=== PATIENT | female | born 1965 | race Caucasian/White ===

== ENCOUNTER → 2017-09-09 06:55 | Outpatient (CLI) | payer OTHER, SELFPAY ==
--- NOTE | 2017-09-09 07:07 | HPBI_ITS ---
MAMMOGRAPHY - BILATERAL SCREENING REASON FOR EXAM: Female, 52 years old. Routine annual screening examination. PERTINENT HISTORY: Remote left breast biopsy. TECHNIQUE: Digital bilateral breast lila (3D mammographic acquisition) in the CC and MLO projections. 2-D mediolateral oblique (MLO) and craniocaudad (CC) views of both breasts were obtained. CAD: Full Field Digital Mammography with Computer Added Detection was performed. COMPARISON: Comparison is made with prior study dated August 08, 2016 and December 08, 2015. FINDINGS: Breast Composition: The breasts are heterogeneously dense, which may obscure small masses. There are no dominant masses or suspicious calcifications. Once again, a tissue clip marker is seen in a small nodular density in the upper anterior aspect of the left breast No other significant abnormalities are identified. There has been no significant change since the prior study. HPBI/SCREENING MAMM (CAD), BILAT IMPRESSION: Stable bilateral screening mammogram. Yearly follow-up mammogram recommended. (A) ASSESSMENT CATEGORY: BIRADS Category 2: Benign. A letter regarding these results will be sent to the patient by the facility within 30 days. Approximately 10% of breast cancers are not detected by mammography. A normal mammogram should not delay biopsy of a clinically suspicious abnormality. [id number] Electronically Signed: Yossi Morris MD at 8:48 EDT Tel [phone], Service support ,
== END ==
PROVIDERS: Family Provider Family Medicine; PCP Family Medicine; Visit Provider Obstetrics & Gynecology
DX: Z12.31 Encounter for screening mammogram for malignant neoplasm of breast (principal)
CPT/HCPCS: 77062; 77067; G0279

== ENCOUNTER → 2018-08-24 09:24 | Outpatient (CLI) | payer OTHER, SELFPAY | PROVIDERS: Family Provider Family Medicine; PCP Family Medicine; Referring Provider Obstetrics & Gynecology; Visit Provider Obstetrics & Gynecology | DX: R05 Cough (principal); R68.83 Chills (without fever) | CPT/HCPCS: 87804 ==

== ENCOUNTER → 2018-09-24 | Outpatient (CLI) | payer OTHER, SELFPAY ==
--- NOTE | 2018-09-24 07:14 | BI_ITS ---
MAMMOGRAPHY - BILATERAL SCREENING REASON FOR EXAM: Female, 53 years old. Routine annual screening examination. PERTINENT HISTORY: Non-contributory. Prior left stereotactic breast biopsy. TECHNIQUE: Digital bilateral breast lila (3D mammographic acquisition) in the CC and MLO projections. 2-D mediolateral oblique (MLO) and craniocaudad (CC) views of both breasts were obtained. CAD: Full Field Digital Mammography with Computer Added Detection was performed. COMPARISON: Comparison is made with prior study dated September 09, 2017 and August 08, 2016. FINDINGS: Breast Composition: The breasts are heterogeneously dense, which may obscure small masses. There are no dominant masses or suspicious calcifications. A tissue clip marker is once again seen within a nodular density in the upper central portion of the left breast. The nodule is unchanged. No other significant abnormalities are identified. There has been no significant change since the prior study. BI/SCREENING MAMM (CAD), BILAT IMPRESSION: Stable bilateral screening mammogram. Yearly follow-up mammogram recommended. (A) ASSESSMENT CATEGORY: BIRADS Category 2: Benign. A letter regarding these results will be sent to the patient by the facility within 30 days. Approximately 10% of breast cancers are not detected by mammography. A normal mammogram should not delay biopsy of a clinically suspicious abnormality. [id number] Electronically Signed: Yossi Morris, at 9:22 EDT , Service support
== END | disposition home or self-care (01) ==
LOC: OPBI 07:13
PROVIDERS: Family Provider Family Medicine; PCP Family Medicine; Referring Provider Obstetrics & Gynecology; Visit Provider Obstetrics & Gynecology
DX: Z12.31 Encounter for screening mammogram for malignant neoplasm of breast (principal)
CPT/HCPCS: 77063; 77067

== ENCOUNTER → 2019-01-06 | Outpatient (CLI) | payer OTHER, SELFPAY ==
--- NOTE | 2019-01-06 13:52 | STRESSREP ---
Stress Test Report Treadmill EKG report: Resting EKG: Normal sinus rhythm with left bundle branch block. Treadmill EKG: The patient exercised according to a Joseph protocol for 7 minutes and 0 seconds achieving a maximum workload of 8.50 METS. Resting heart rate was initially 83 beats a minute and antonio to max of 146 beats a minute which represents 80% of the maximal age picked at heart rate. Resting blood pressure was 120/88, and antonio to maximum 162/78. Test was terminated due to leg discomfort. During exercise the patient's heart rate increased as expected. At approximately 3 minutes 23 seconds into exercise she developed [address] segment depression along the inferolateral leads. This persisted until approximately 1 minute into recovery. Rare PVCs noted. Conclusions: Abnormal, adequate, treadmill EKG. Positive for ischemia by EKG criteria. No anginal symptoms noted. Rare PVCs noted. Appropriate blood pressure response to exercise. Average exercise capacity for age. Decreased sensitivity due to baseline left bundle branch blocks make EKG interpretation problematic. No imaging study obtained. Recommend clinical correlation or alternative mode of stress testing to include imaging component in order to increase sensitivity given baseline LBBB. No complications.
== END | disposition home or self-care (01) ==
PROVIDERS: Family Provider Family Medicine; PCP Family Medicine; Referring Provider Family Medicine; Visit Provider Family Medicine
DX: R94.31 Abnormal electrocardiogram [ECG] [EKG] (principal)
CPT/HCPCS: 93017

== ENCOUNTER → 2019-01-15 15:41 | Outpatient (CLI) | payer OTHER, SELFPAY ==
[2019-01-14 14:03] VITALS: BMI 28.7
--- NOTE | 2019-01-15 15:42 | CT_ITS ---
STUDY: CTA CHEST REASON FOR EXAM: Female, 53 years old. Short of breath chest pain RADIATION DOSAGE (If Supplied By Facility): CTDIvol = ( 8.19 ) mGy, DLP = ( 368.61 ) mGycm TECHNIQUE: The examination was performed with the intravenous administration of 100 IV Isovue 370. Post-processing of the angiographic images was performed, with multiplanar reformation and 3D reconstruction. Individualized dose optimization techniques were used for this CT. COMPARISON: None. FINDINGS: Normal enhancement of the main pulmonary artery and right and left pulmonary arteries. Normal enhancement of the bilateral peripheral pulmonary arteries. There is no demonstrated pulmonary embolism. Normal thoracic aorta and visualized great vessels. There is no demonstrated aortic dissection. Heart is normal in size. Normal mediastinum. Normal hilar regions. Normal visualized trachea and bronchi. The lungs are well expanded. There is minor atelectasis within the dependent portion of the lungs. There is no focal infiltration or pulmonary nodule Normal pleura. Normal chest wall structures. Dorsal spine demonstrates advanced spondylosis. Small hiatal hernia is present. Normal visualized upper abdomen. CT/CTA Chest W/WO Contrast IMPRESSION: No acute abnormalities, without a demonstrated pulmonary embolism or arterial dissection. Other findings as above Electronically Signed: Perry Wilks MD at 16:18 EDT , Service support ,
== END ==
PROVIDERS: Family Provider Family Medicine; PCP Family Medicine; Referring Provider Internal Medicine Cardiovascular Disease; Visit Provider Internal Medicine Cardiovascular Disease
DX: E78.5 Hyperlipidemia, unspecified (principal); I44.7 Left bundle-branch block, unspecified; R07.9 Chest pain, unspecified; R06.02 Shortness of breath; R94.39 Abnormal result of other cardiovascular function study
CPT/HCPCS: 71275; Q9967

== ENCOUNTER → 2019-01-19 14:47 | Outpatient (CLI) | payer OTHER, SELFPAY ==
[2019-01-14 14:03] VITALS: BMI 28.7
--- NOTE | 2019-01-19 14:50 | ECHOD_ITS ---
Reason For Study: Chest Pain Procedure This was a 2D Doppler, Color Flow transthoracic echocardiogram. Exam performed in department. Left Ventricle Normal size and thickness. The estimated ejection fraction is 65 %. Stage 1 diastolic dysfunction. No regional wall motion abnormalities noted. Right Ventricle Normal size and thickness. Normal systolic function. Atria Normal left atrium. Normal right atrium. Normal atrial septum. Mitral Valve The mitral valve is structurally normal. No prolapse or stenosis seen. Tricuspid Valve Normal tricuspid valve. Trivial tricuspid valve insufficiency. Unable to estimate RV systolic pressure due to insufficient tricuspid regurgitant envelope. Aortic Valve Normal aortic valve. Trisinus/trileaflet aortic valve. Pulmonic Valve Normal pulmonic valve. Great Vessels Normal aortic root. Normal arch. Normal inferior vena cava. Inferior vena cava collapse with sniff. Pericardium/Pleural No pericardial effusion. MMode/2D Measurements & Calculations LVIDd: 4.5 cm IVSd: 1.2 cm LA dimension: 3.9 cm LVIDs: 3.0 cm LVPWd: 1.1 cm RVDd: 3.2 cm FS: 34.1 % LAV(MOD-bp): 54.4 ml LA A4 area: 19.8 cm2 RA A4 area: 12.7 cm2 LAV(MOD-bp) Indexed: 26.2 ml/m2 LAV(MOD-sp2): 53.4 ml LAV(MOD-sp4): 55.2 ml Time Measurements MV dec time: 0.22 sec Doppler Measurements & Calculations MV E max zeke: 74.9 cm/sec Lat Peak E' Zeke: 9.6 cm/sec Med Peak E' Zeke: 7.6 cm/sec MV A max zeke: 113.6 cm/sec E/E' lat: 7.8 E/E' med: 9.8 MV E/A: 0.66 MV V2 max: 124.2 cm/sec MV P1/2t max zeke: 100.2 cm/sec Ao V2 max: 139.8 cm/sec MV max P.2 mmHg MV P1/2t: 75.0 msec Ao max P.8 mmHg MV V2 mean: 73.3 cm/sec MV dec slope: 391.3 cm/sec2 Ao V2 mean: 92.7 cm/sec MV mean P.5 mmHg MVA(P1/2t): 2.9 cm2 Ao mean P.0 mmHg MV V2 VTI: 28.5 cm Ao V2 VTI: 26.7 cm LV V1 max: 102.9 cm/sec PA V2 max: 107.9 cm/sec LV V1 max P.2 mmHg LV V1 mean P.5 mmHg LV V1 mean: 73.7 cm/sec LV V1 VTI: 24.6 cm Interpretation Summary The estimated ejection fraction is 65 %. Stage 1 diastolic dysfunction. Trivial tricuspid valve insufficiency. Unable to estimate RV systolic pressure due to insufficient tricuspid regurgitant envelope. There is no comparison study available. Ordering Physician: Akash Lacy Referring Physician: Asim Montenegro Performed By: Willie Manjarrez RCS
== END ==
PROVIDERS: Family Provider Family Medicine; PCP Family Medicine; Referring Provider Internal Medicine Cardiovascular Disease; Visit Provider Internal Medicine Cardiovascular Disease
DX: I44.7 Left bundle-branch block, unspecified (principal); R06.02 Shortness of breath; R94.39 Abnormal result of other cardiovascular function study; R07.9 Chest pain, unspecified
CPT/HCPCS: 93306

== ENCOUNTER → 2019-01-29 | Outpatient (CLI) | payer OTHER, SELFPAY ==
[2019-01-14 14:03] VITALS: BMI 28.7
[2019-01-29 14:15] LABS: Hematocrit 42.6 % (37-47); Hemoglobin 14.4 g/dL (12.0-15.0); Mean Corp Hgb Conc 33.8 g/dL (32-36); Mean Corpuscular Hgb 32.4 pg (27.0-32.0); Mean Corpuscular Volume 95.9 fL (81-99); Mean Platelet Vol. 10.9 fl (6.2-12.0); Platelet Count 278 K/mm3 (150-450); RBC Distribution Width CV 12.4 % (11.6-14.6); RBC Distribution Width SD 43.8 fl (35.1-43.9); Red Blood Count 4.44 M/mm3 (4.2-5.4); White Blood Count 8.4 K/mm3 (4.4-11.0)
[2019-01-29 14:39] LABS: Anion Gap 5 (5-15); BUN 21 mg/dL (7-18); BUN/Creat Ratio 18.6 RATIO (10-20); Calcium,Total 9.1 mg/dL (8.5-10.1); Chloride 106 mmol/L (98-107); Creatinine, Serum 1.13 mg/dL (0.55-1.02); EST Glomerular Filtration Rate 53 mL/min (>60); Est Glom Filt Rate - Afr Amer 64 mL/min (>60); Glucose 93 mg/dL (74-106); Potassium 3.9 mmol/L (3.5-5.1); Sodium Level 142 mmol/L (136-145)
== END | disposition home or self-care (01) ==
LOC: LAB 13:33
PROVIDERS: Family Provider Family Medicine; PCP Family Medicine; Referring Provider Internal Medicine Cardiovascular Disease; Visit Provider Internal Medicine Cardiovascular Disease
DX: I44.7 Left bundle-branch block, unspecified (principal)
CPT/HCPCS: 36415; 80048; 85027

== ENCOUNTER 2019-02-02 06:56 | Day surgery (SDC) | payer OTHER, SELFPAY ==
--- NOTE | 2019-01-14 03:04 | HP_ITS ---
HPI HPI History of Present Illness Surgical H&P: Yes Details: Mrs. Ko is a very pleasant 53-year-old female with borderline diabetes, recently diagnosed hypertension, hypercholesterolemia, positive family history of coronary disease in her father at age 64 who had stents, non-smoker, who was referred to us for chest pain and palpitations. Patient underwent a treadmill EKG reviewed by myself on 01/06/2019. This was felt to be abnormal for ST segment depression, superimposed upon left bundle branch block. At that time she went 8.5 METS. Appropriate blood pressure response to exercise. Patient is now here for further evaluation. On further history, the patient has had progressively worsening dyspnea on exertion over the last several months. She cannot recall any long car rides that precipitated this. She does have a daughter has factor V Leiden deficiency and has had clots, and several family members who have had clots but have tested negative for hypercoagulable state. The patient is noted significant dyspnea on exertion while at [employer] this past November with extreme tiredness, dyspnea on exertion after walking 5 flights of stairs, and 5 out of 10 substernal chest heaviness. She denied any associated nausea, vomiting, diaphoresis or radiation of her chest pressure. She notes that on her treadmill test recently she had the beginnings of chest pressure at peak exercise. She is to walk 3 miles several times per week, but is unable to do so recently. She has never been evaluated for pulmonary embolism and never had a catheterization. In addition, the patient has had several miscarriages and is status post hysterectomy for precancerous cells. She has been on estradiol ever since 2013 for hot flashes. In our office today blood pressure is 148/96, and pulse is 76 and regular. Her physical exam demonstrates clear lungs bilaterally, regular rate and rhythm, normal S1/S2, no S3 or S4, no murmurs noted. No edema. EKG is pending, but previous EKG noted normal sinus rhythm with left bundle branch block. Patient had lipids recently, but we do not have those labs available today. 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: No Accompanied by: Is patient in pain?: No Allergies No Known Allergies Allergy (Verified 01/14/19 14:06) Medications acetaminophen 325 mg tablet 325 mg PO Q6H PRN 01/08/19 [History Confirmed 01/14/19] wljpfbufdc-frhfiqafdwhbp-kklwowxf 50 mg-300 mg-40 mg capsule 1 cap PO TID PRN 01/08/19 [History Confirmed 01/14/19] estradiol 0.5 mg tablet 0.5 mg PO DAILY 01/08/19 [History Confirmed 01/14/19] lorazepam 1 mg tablet 1 mg PO Q6H PRN tab 01/14/19 [History Confirmed 01/14/19] olmesartan 20 mg-hydrochlorothiazide 12.5 mg tablet 1 tab PO DAILY #30 tab 01/14/19 [Rx Confirmed 01/14/19] PFSH Medical History (Updated 01/14/19 @ 14:15 by Elysia Guy) Shortness of breath on exertion (Acute) LBBB (left bundle branch block) (Acute) Hyperlipidemia (Chronic) Abnormal stress test (Acute) Surgical History (Updated 01/14/19 @ 14:09 by Elysia Guy) History of D&C (Resolved) History of bladder suspension procedure (Resolved) History of breast biopsy (Resolved) History of section (Resolved) History of cholecystectomy (Resolved) History of hysterectomy (Resolved) History of tubal ligation (Resolved) Family History (Updated 01/14/19 @ 14:11 by Elysia Guy) Father Heart disease COPD (chronic obstructive pulmonary disease) Grandmother Cancer lung Hypertension Uncle Cancer lung Brother Diabetes Daughter Factor 5 Leiden mutation, heterozygous Social History (Updated 01/14/19 @ 15:05 by Akash Lacy MD) Smoking Status: Never smoker alcohol intake: current substance use type: does not use caffeine: Yes Type: tea Number of servings: 2 ROS Const Const: Positive for fatigue; negative for weakness, headache(s), frequent falls, difficulty sleeping or excessive sweating Eyes Eyes: Negative for loss of peripheral vision, transient loss of vision, blurry vision, double vision or tunnel vision ENT ENT: Negative for headache(s), dizziness, Nosebleed/epistaxis or balance problems Cardio Chest Pain: Yes Frequency: weekly (couple of times per week) Character: other (heaviness) Onset: other (randomly) Location: mid sternal Duration: hours Palpitations: Yes (Daily) feels like its: other (fluttering(like I've been scared)) Edema: None Muscle aches with walking: None Resp Respiratory: Positive for SOB with activity; negative for SOB at rest, SOB orthopnea\SOB lying down, Cough or paroxysmal nocturnal dyspnea GI GI: Negative nausea, vomiting, heartburn or black,tarry stools : Negative for hematuria Musc Musc: Negative for muscle aches/ myalgia, muscle weakness, joint pain or balance problems Skin Skin: Negative non-healing lesions, rash or unusual bruising Neuro Neuro: Positive for lightheadedness (occurs with shortness of breath, chest heaviness); negative for dizziness, near syncope, syncope, frequent falls, headache(s), weakness, blurry vision, double vision or lack of coordination Gwyn Hematologic/Lymphatic: Negative for easy bleeding or easy bruising Endo Endo: Positive for fatigue; negative for excessive sweating or increased thirst/drinking Psych Psych: Negative for anxiety or depression Allergy Allergy/Immunology: Negative for hives, Negative for rash Cardiology Exam Const Appearance: cooperative, healthy appearing and no acute distress Nutritional Appearance: well nourished Orientation: alert, oriented x3 and oriented to person Head Head: normal to inspection, normocephalic and atraumatic Nose: external nose normal Face and Sinus: face symmetric Mouth: oral mucosae normal Eyes General: appearance normal, both eyes and all related structures Eyelids: eyelids normal Conjunctivae: conjunctivae normal Pupils: PERRL and normal by confrontation EOM: EOM intact bilaterally Neck Neck: normal visual inspection and full ROM Carotids: normal carotid upstroke Chest Chest inspection: normal inspection of the chest Auscultation: Bilateral: Clear to Auscultation Cardio Palpation: normal PMI Rate: regular rate Rhythm: regular rhythm Heart sounds: S1 normal and S2 normal GI GI: normal to inspection, no hepatosplenomegaly and bowel sounds present Neuro General: alert, awake, oriented x3, CN's II-XI intact bilaterally and moves all extremities Skin Skin: no rashes or lesions noted Extremities Pulses: Normal: Right Femoral Pulse, Left Femoral Pulse, Right Dorsalis Pedis Pulse, Left Dorsalis Pedis Pulse, Right Posterior Tibial Pulse, Left Posterior Tibial Pulse, Right Radial Pulse, Left Radial Pulse Lower Extremity Edema: None: Bilateral Psych Psychological: normal affect Assessment & Plan 1. Abnormal stress test R94.39 Plan 1. Abnormal stress test: The patient has had progressively worsening dyspnea on exertion superimposed on baseline left bundle branch block, abnormal treadmill/EKG, superimposed upon a positive family history of coronary disease in her father who had stents at age 64. Given the patient's symptoms, risk factors, abnormal stress test, I have recommended that she undergo a diagnostic coronary angiogram after we have performed a CT scan of her chest to evaluate for possible pulmonary embolism. If her CT scan of her chest is negative, would recommend proceeding with diagnostic left heart catheterization. The risks/benefits of the procedure were thoroughly explained to the patient, with specific attention to lack of on-site surgical back-up, and informed consent was obtained. Recommend starting the patient on baby aspirin, Plavix 75 mg a day, and Hyzaar 50/12.5 mg p.o. daily for her hypertension. Orders Orders: Lipid Profile Today Liver Profile Today CTA Chest W/WO Contrast Today Echo Complete Today 2. Shortness of breath on exertion R06.02 Plan 2. Shortness of breath: Recommend the patient undergo a hypercoagulable work-up including factor V Leiden, lupus anticoagulant, anti-thrombin 3, protein C and protein S. In addition she will undergo a CT scan of her chest to evaluate whether she has had a previous pulmonary embolism given her history of miscarriages, daughter who has factor V Leiden deficiency. In addition I recommend she undergo a 2D echo with Doppler to evaluate for possible pulmonary hypertension. Orders Orders: Lipid Profile Today Liver Profile Today CTA Chest W/WO Contrast Today Echo Complete Today Antithrombin 3 Function 1 Week Fact V Leiden Mutation 1 Week Lupus Anticoagulant Comp 1 Week Protein C, Functional 1 Week Protein S, Functional 1 Week Homocysteine 1 Week 3. Hyperlipidemia E78.5 Plan 3. Hyperlipidemia: Patient recently underwent lipid profile by her PCP. We await those results. Should the patient have any coronary disease would recommend aggressive LDL reduction given her family history. 4. Return office in 6-months This note was generated using a voice recognition system and there may be incorrect words, spelling or punctuation that were not noted when reviewing the office note prior to saving. Orders Orders: Lipid Profile Today Liver Profile Today CTA Chest W/WO Contrast Today Plan Detail Other Orders Orders: Lipid Profile Today E78.00, I44.7 Liver Profile Today E78.00, I44.7 CTA Chest W/WO Contrast Today I44.7, R07.9 Echo Complete Today I44.7, R07.9 Other Medications New: olmesartan-hydrochlorothiazide 20-12.5 mg 1 tab PO DAILY 30 tabs 11RF Follow Up +6M (Regino) Coding Level of Care Code Off vis,new,level 4 Diagnoses Abnormal stress test R94.39 Shortness of breath on exertion R06.02 Hyperlipidemia E78.5 Coding Level of Care Code Off vis,new,level 4 Diagnoses Abnormal stress test R94.39 Shortness of breath on exertion R06.02 Hyperlipidemia E78.5 Supplemental Info Supplemental Information Diagnostics Stress Test 01/06/19 Chest X-Ray 06/17/16 01/14/19 3402 <Electronically signed by Akash Lacy MD> Date _ Akash Lacy MD
[2019-01-14 14:03] VITALS: BMI 28.7
[2019-02-02 07:12] VITALS: BMI 28.2
--- NOTE | 2019-02-02 08:25 | PCM.HP.BLA ---
Problem List (1) Abnormal stress test Status: Acute (2) LBBB (left bundle branch block) Status: Acute (3) Shortness of breath on exertion Status: Acute (4) Hyperlipidemia Status: Chronic History and Physical Date of Admission: 02/02/19 [facility] Medical Records Department [address] [place] [address] History and Physical 01/14/19 0304 MR#: [id number] Acct: [id number] Name: ODALYS KO Rep #: [id number] : 1965 53 From: Akash Lacy MD PCP: Asim Montenegro MD Status: [facility] – [place] [facility] HPI HPI History of Present Illness Surgical H&P: Yes Details: Mrs. Ko is a very pleasant 53-year-old female with borderline diabetes, recently diagnosed hypertension, hypercholesterolemia, positive family history of coronary disease in her father at age 64 who had stents, non-smoker, who was referred to us for chest pain and palpitations. Patient underwent a treadmill EKG reviewed by myself on 01/06/2019. This was felt to be abnormal for ST segment depression, superimposed upon left bundle branch block. At that time she went 8.5 METS. Appropriate blood pressure response to exercise. Patient is now here for further evaluation. On further history, the patient has had progressively worsening dyspnea on exertion over the last several months. She cannot recall any long car rides that precipitated this. She does have a daughter has factor V Leiden deficiency and has had clots, and several family members who have had clots but have tested negative for hypercoagulable state. The patient is noted significant dyspnea on exertion while at [employer] this past November with extreme tiredness, dyspnea on exertion after walking 5 flights of stairs, and 5 out of 10 substernal chest heaviness. She denied any associated nausea, vomiting, diaphoresis or radiation of her chest pressure. She notes that on her treadmill test recently she had the beginnings of chest pressure at peak exercise. She is to walk 3 miles several times per week, but is unable to do so recently. She has never been evaluated for pulmonary embolism and never had a catheterization. In addition, the patient has had several miscarriages and is status post hysterectomy for precancerous cells. She has been on estradiol ever since 2013 for hot flashes. In our office today blood pressure is 148/96, and pulse is 76 and regular. Her physical exam demonstrates clear lungs bilaterally, regular rate and rhythm, normal S1/S2, no S3 or S4, no murmurs noted. No edema. EKG is pending, but previous EKG noted normal sinus rhythm with left bundle branch block. Patient had lipids recently, but we do not have those labs available today. Intake Vital Signs 01/14/19 Height 5 ft 10 in 01/14/19 Weight: 200 lb 01/14/19 Body Mass Index (BMI) 28.7 01/14/19 Blood Pressure 148/96 H 01/14/19 Blood Pressure Location Lt brachial 01/14/19 Respiratory Rate 18 01/14/19 Pulse Rate 76 01/14/19 Pulse Source Auscultation 01/14/19 Body Mass Index (BMI) 29.4 Intake Visit Reasons: ABN STRESS (Sravanthi MONTENEGRO) Digital Sales Executive Required: No Accompanied by: Is patient in pain?: No Allergies No Known Allergies Allergy (Verified 01/14/19 14:06) Medications acetaminophen 325 mg tablet 325 mg PO Q6H PRN 01/08/19 [History Confirmed 01/14/19] cgroryvpuo-fuowweknfwtwx-yimzmhhf 50 mg-300 mg-40 mg capsule 1 cap PO TID PRN 01/08/19 [History Confirmed 01/14/19] estradiol 0.5 mg tablet 0.5 mg PO DAILY 01/08/19 [History Confirmed 01/14/19] lorazepam 1 mg tablet 1 mg PO Q6H PRN tab 01/14/19 [History Confirmed 01/14/19] olmesartan 20 mg-hydrochlorothiazide 12.5 mg tablet 1 tab PO DAILY #30 tab 01/14/19 [Rx Confirmed 01/14/19] [facility] Medical History (Updated 01/14/19 @ 14:15 by Elysia Guy) Shortness of breath on exertion (Acute) LBBB (left bundle branch block) (Acute) Hyperlipidemia (Chronic) Abnormal stress test (Acute) Surgical History (Updated 01/14/19 @ 14:09 by Elyisa Guy) History of D&C (Resolved) History of bladder suspension procedure (Resolved) History of breast biopsy (Resolved) History of section (Resolved) History of cholecystectomy (Resolved) History of hysterectomy (Resolved) History of tubal ligation (Resolved) Family History (Updated 01/14/19 @ 14:11 by Elysia Guy) Father Heart disease COPD (chronic obstructive pulmonary disease) Grandmother Cancer lung Hypertension Uncle Cancer lung Brother Diabetes Daughter Factor 5 Leiden mutation, heterozygous Social History (Updated 01/14/19 @ 15:05 by Akash Lacy MD) Smoking Status: Never smoker alcohol intake: current substance use type: does not use caffeine: Yes Type: tea Number of servings: 2 ROS Const Const: Positive for fatigue; negative for weakness, headache(s), frequent falls, difficulty sleeping or excessive sweating Eyes Eyes: Negative for loss of peripheral vision, transient loss of vision, blurry vision, double vision or tunnel vision ENT ENT: Negative for headache(s), dizziness, Nosebleed/epistaxis or balance problems Cardio Chest Pain: Yes Frequency: weekly (couple of times per week) Character: other (heaviness) Onset: other (randomly) Location: mid sternal Duration: hours Palpitations: Yes (Daily) feels like its: other (fluttering(like I've been scared)) Edema: None Muscle aches with walking: None Resp Respiratory: Positive for SOB with activity; negative for SOB at rest, SOB orthopnea\SOB lying down, Cough or paroxysmal nocturnal dyspnea GI GI: Negative nausea, vomiting, heartburn or black,tarry stools : Negative for hematuria Musc Musc: Negative for muscle aches/ myalgia, muscle weakness, joint pain or balance problems Skin Skin: Negative non-healing lesions, rash or unusual bruising Neuro Neuro: Positive for lightheadedness (occurs with shortness of breath, chest heaviness); negative for dizziness, near syncope, syncope, frequent falls, headache(s), weakness, blurry vision, double vision or lack of coordination Gwyn Hematologic/Lymphatic: Negative for easy bleeding or easy bruising Endo Endo: Positive for fatigue; negative for excessive sweating or increased thirst/drinking Psych Psych: Negative for anxiety or depression Allergy Allergy/Immunology: Negative for hives, Negative for rash Cardiology Exam Const Appearance: cooperative, healthy appearing and no acute distress Nutritional Appearance: well nourished Orientation: alert, oriented x3 and oriented to person Head Head: normal to inspection, normocephalic and atraumatic Nose: external nose normal Face and Sinus: face symmetric Mouth: oral mucosae normal Eyes General: appearance normal, both eyes and all related structures Eyelids: eyelids normal Conjunctivae: conjunctivae normal Pupils: PERRL and normal by confrontation EOM: EOM intact bilaterally Neck Neck: normal visual inspection and full ROM Carotids: normal carotid upstroke Chest Chest inspection: normal inspection of the chest Auscultation: Bilateral: Clear to Auscultation Cardio Palpation: normal PMI Rate: regular rate Rhythm: regular rhythm Heart sounds: S1 normal and S2 normal GI GI: normal to inspection, no hepatosplenomegaly and bowel sounds present Neuro General: alert, awake, oriented x3, CN's II-XI intact bilaterally and moves all extremities Skin Skin: no rashes or lesions noted Extremities Pulses: Normal: Right Femoral Pulse, Left Femoral Pulse, Right Dorsalis Pedis Pulse, Left Dorsalis Pedis Pulse, Right Posterior Tibial Pulse, Left Posterior Tibial Pulse, Right Radial Pulse, Left Radial Pulse Lower Extremity Edema: None: Bilateral Psych Psychological: normal affect Assessment & Plan 1. Abnormal stress test R94.39 Plan 1. Abnormal stress test: The patient has had progressively worsening dyspnea on exertion superimposed on baseline left bundle branch block, abnormal treadmill/EKG, superimposed upon a positive family history of coronary disease in her father who had stents at age 64. Given the patient's symptoms, risk factors, abnormal stress test, I have recommended that she undergo a diagnostic coronary angiogram after we have performed a CT scan of her chest to evaluate for possible pulmonary embolism. If her CT scan of her chest is negative, would recommend proceeding with diagnostic left heart catheterization. The risks/benefits of the procedure were thoroughly explained to the patient, with specific attention to lack of on-site surgical back-up, and informed consent was obtained. Recommend starting the patient on baby aspirin, Plavix 75 mg a day, and Hyzaar 50/12.5 mg p.o. daily for her hypertension. Orders Orders: Lipid Profile Today Liver Profile Today CTA Chest W/WO Contrast Today Echo Complete Today 2. Shortness of breath on exertion R06.02 Plan 2. Shortness of breath: Recommend the patient undergo a hypercoagulable work-up including factor V Leiden, lupus anticoagulant, anti-thrombin 3, protein C and protein S. In addition she will undergo a CT scan of her chest to evaluate whether she has had a previous pulmonary embolism given her history of miscarriages, daughter who has factor V Leiden deficiency. In addition I recommend she undergo a 2D echo with Doppler to evaluate for possible pulmonary hypertension. Orders Orders: Lipid Profile Today Liver Profile Today CTA Chest W/WO Contrast Today Echo Complete Today Antithrombin 3 Function 1 Week Fact V Leiden Mutation 1 Week Lupus Anticoagulant Comp 1 Week Protein C, Functional 1 Week Protein S, Functional 1 Week Homocysteine 1 Week 3. Hyperlipidemia E78.5 Plan 3. Hyperlipidemia: Patient recently underwent lipid profile by her PCP. We await those results. Should the patient have any coronary disease would recommend aggressive LDL reduction given her family history. 4. Return office in 6-months This note was generated using a voice recognition system and there may be incorrect words, spelling or punctuation that were not noted when reviewing the office note prior to saving. Orders Orders: Lipid Profile Today Liver Profile Today CTA Chest W/WO Contrast Today Plan Detail Other Orders Orders: Lipid Profile Today E78.00, I44.7 Liver Profile Today E78.00, I44.7 CTA Chest W/WO Contrast Today I44.7, R07.9 Echo Complete Today I44.7, R07.9 Other Medications New: olmesartan-hydrochlorothiazide 20-12.5 mg 1 tab PO DAILY 30 tabs 11RF Follow Up +6M (Regino) Coding Level of Care Code Off vis,new,level 4 Diagnoses Abnormal stress test R94.39 Shortness of breath on exertion R06.02 Hyperlipidemia E78.5 Coding Level of Care Code Off vis,new,level 4 Diagnoses Abnormal stress test R94.39 Shortness of breath on exertion R06.02 Hyperlipidemia E78.5 Supplemental Info Supplemental Information Diagnostics Stress Test 01/06/19 Chest X-Ray 06/17/16 01/14/19 1505 <Electronically signed by Akash Lacy MD> Date Akash Lacy MD 01/28/19 1327 <Electronically signed by Akash Lacy MD> Date: Time: Akash Lacy MD CC: Akash Lacy MD; Asim Montenegro MD ~ Date Dictated: 01/14/19 0304 Date Transcribed: 01/27/19 7736 Java Lead Developer: Signed Addendum: Patient seen and examined agree with above. No changes in history of physical since her last visit. Patient will proceed with left heart catheterization to evaluate abnormal stress test, chest pain, dyspnea on exertion, positive family history of premature coronary artery disease, and changes symptoms. Left heart catheterization to follow.
--- NOTE | 2019-02-02 09:00 | CL.D_ITS ---
Patient Name: ODALYS COBURN Study Date: 02/02/2019 Performing: Akash Lacy MD Ht: 70 inches 177.8 cm : 1965 Wt: 193.98 lbs 87.99 kg Age: 53 Gender: female BSA: 2.06 PROCEDURE(S) PERFORMED MO57-LIO/COR/LV CLINICAL PROFILE AND INDICATIONS Indications: New Onset Angina <= 2 months, Suspected CAD Heart Failure: None Stress/Imaging Standard Exercise Stress Test: Yes Result: Positive Low Risk Angina Classification Anginal Classification w/in 2 Weeks: CCS II CAD Presentations: Unstable angina. Other: Dyspne on exertion Comorbidities/Risk Factors: Hypertension Dyslipidemia Diabetes Mellitus: Diabetes Therapy: Diet CONCLUSIONS Normal LV size, wall motion,and systolic function Normal Left Ventricular systolic function LVEF: by LV gram 65 % Normal Left Ventricular End Diastolic Pressure Non obstructive coronary arteries RECOMMENDATIONS Management as per referring Satellite Communications Engineer D/c plavix, start crestor 10mg po qhs and repeat FLP in 6 weeks. Manual sheath removal. DESCRIPTION OF PROCEDURE The patient arrived to the procedure lab. The risks and benefits of the procedure as well as a full d escription of our services here and current unavailability of surgical backup were fully explained to the patient and/or their significant other prior to the catheterization. The Timeout was completed, verifying the correct patient and procedure. The patient's procedural site was prepped and draped in the usual fashion. Local anesthetic was given subcutaneously to right groin region with Lidocaine 2%. Using a modified Seldinger technique, arterial access was obtained via the right femoral artery, a 4 Fr sheath was inserted Left Coronary Artery selective angiography was performed in multiple views us ing a 4 Fr. JL5 catheter. Right Coronary Artery selective angiography was then performed in multiple views using a 4 Fr. 3DRC catheter. Left Ventriculography was performed in GREEN projection using a 4 Fr . Pigtail catheter. LV to AO pullback pressures were then recorded.The arterial sheath was pulled and manual compression applied until hemostasis is achieved. CORONARY ANGIOGRAPHY DOMINANCE: Right Dominant LEFT HEART ASSESSMENT Left Ventricular Ejection Fraction: by LV Gram 65 % Normal LV wall motion Normal Left Ventricular systolic function LVEDP: 8 mmHg LEFT MAIN: Angiographically normal LEFT ANTERIOR DESCENDING ARTERY: Angiographically normal CIRCUMFLEX ARTERY: Angiographically normal OM 1: Proximal - Angiographically normal RIGHT CORONARY ARTERY: MID RCA: Non-obstructive COMPLICATIONS No Complications PROCEDURE MEDICATIONS Versed 1 mg IV Oxygen: 2 L/min via nasal cannula SUMMARY OF HEMODYNAMIC DATA Time AIR REST ECG 07:20:39 AO 132/70 (92) SA 08:41:32 LV 143/-21, 6 08:47:43 LV 133/-21, 8 08:47:50 LVp 134/-26, 2 08:47:58 AOp 149/70 (101) 08:48:03 Signed By Akash Lacy MD On 02/02/2019 09:00:19 Akash Lacy MD
== END 2019-02-02 13:17 | disposition home or self-care (01) ==
LOC: CLSP 06:57
PROVIDERS: Family Provider Family Medicine; PCP Family Medicine; Referring Provider Internal Medicine Cardiovascular Disease; Visit Provider Internal Medicine Cardiovascular Disease
DX: I20.9 Angina pectoris, unspecified (principal); R94.39 Abnormal result of other cardiovascular function study; I44.7 Left bundle-branch block, unspecified; E78.5 Hyperlipidemia, unspecified; R06.02 Shortness of breath; R73.09 Other abnormal glucose; Z79.899 Other long term (current) drug therapy
CPT/HCPCS: 93458; 99152; 99153; J7040; Q9967; C1769; C1894

== ENCOUNTER → 2019-03-16 | Outpatient (CLI) | payer OTHER, SELFPAY ==
[2019-03-16 10:47] LABS: AST(SGOT) 15 U/L (15-37); Alanine Aminotransfer ALT/SGPT 23 U/L (13-56); Albumin, Serum 4.1 g/dL (3.2-5.0); Alkaline Phosphatase 84 U/L (45-117); Bilirubin, Direct 0.09 mg/dL (0.00-0.30); Cholesterol 173 mg/dL (200); Globulin 3.4 g/dL (2.2-4.2); High Density Lipoprotein 78 mg/dL; Protein, Total 7.5 g/dL (6.4-8.2); Triglycerides 132 mg/dL; Very Low Density Lipoprotein 26 mg/dL (5-40)
== END | disposition home or self-care (01) ==
LOC: WOBLAB 08:39
PROVIDERS: Family Provider Family Medicine; PCP Family Medicine; Visit Provider Internal Medicine Cardiovascular Disease
DX: E78.5 Hyperlipidemia, unspecified (principal)
CPT/HCPCS: 36415; 80061; 80076

== ENCOUNTER → 2019-05-04 08:46 | Outpatient (CLI) | payer OTHER, SELFPAY ==
[2019-05-04 11:50] LABS: ALB/GLOB Ratio 1.2 RATIO (0.9-2.4); AST(SGOT) 16 U/L (15-37); Alanine Aminotransfer ALT/SGPT 25 U/L (13-56); Albumin, Serum 4.1 g/dL (3.2-5.0); Alkaline Phosphatase 72 U/L (45-117); Anion Gap 4 (5-15); BUN 17 mg/dL (7-18); BUN/Creat Ratio 16.8 RATIO (10-20); Calcium,Total 8.8 mg/dL (8.5-10.1); Chloride 110 mmol/L (98-107); Creatinine, Serum 1.01 mg/dL (0.55-1.02); EST Glomerular Filtration Rate 60 mL/min (>60); Est Glom Filt Rate - Afr Amer 73 mL/min (>60); Globulin 3.3 g/dL (2.2-4.2); Glucose 102 mg/dL (74-106); Potassium 3.9 mmol/L (3.5-5.1); Protein, Total 7.4 g/dL (6.4-8.2); Sodium Level 142 mmol/L (136-145)
[2019-05-04 11:55] LABS: Hemoglobin A1c 5.5 % (4.2-6.3)
== END ==
PROVIDERS: Family Provider Family Medicine; PCP Family Medicine; Visit Provider Family Medicine
DX: E88.81 Metabolic syndrome and other insulin resistance (principal)
CPT/HCPCS: 80053; 83036

== ENCOUNTER → 2019-11-18 | Outpatient (CLI) | payer OTHER, SELFPAY ==
--- NOTE | 2019-11-18 07:05 | BI_ITS ---
MAMMOGRAPHY - BILATERAL SCREENING REASON FOR EXAM: Female, 54 years old. Routine annual screening examination. PERTINENT HISTORY: Non-contributory. TECHNIQUE: Digital bilateral breast francia (3D mammographic acquisition) in the CC and MLO projections. 2-D mediolateral oblique (MLO) and craniocaudad (CC) views of both breasts were obtained. CAD: Full Field Digital Mammography with Computer Added Detection was performed. COMPARISON: Comparison is made with prior examination dated September 24, 2018 and September 09, 2017. FINDINGS: Breast Composition: The breasts are heterogeneously dense, which may obscure small masses. There are no dominant masses or suspicious calcifications. Once again, a tissue clip marker is seen within a 7.9 mm nodule in the upper central portion of the left breast. The nodular density has decreased in size as compared to prior study. No other significant abnormalities are identified. There has been no significant change since the prior study. BI/SCREEN MAMM (CAD) W/FRANCIA BILAT IMPRESSION: Stable bilateral screening mammogram. Yearly follow-up mammogram recommended. (A) ASSESSMENT CATEGORY: BIRADS Category 2: Benign. A letter regarding these results will be sent to the patient by the facility within 30 days. Approximately 10% of breast cancers are not detected by mammography. A normal mammogram should not delay biopsy of a clinically suspicious abnormality. [id number] Electronically Signed: Yossi Morris, at 8:09 EDT , Service support ,
== END | disposition home or self-care (01) ==
LOC: OPBI 07:02
PROVIDERS: PCP Family Medicine; Referring Provider Obstetrics & Gynecology; Visit Provider Obstetrics & Gynecology
DX: Z12.31 Encounter for screening mammogram for malignant neoplasm of breast (principal)
CPT/HCPCS: 77063; 77067

== ENCOUNTER → 2020-06-20 | Outpatient (CLI) | payer OTHER, SELFPAY | END | disposition home or self-care (01) | LOC: LABSPEC 14:19 | PROVIDERS: PCP Family Medicine; Referring Provider Family Medicine; Visit Provider Family Medicine | DX: U07.1 COVID-19 (principal) | CPT/HCPCS: 87635; U0005; U0003 ==

== ENCOUNTER 2020-06-26 15:34 | Emergency (ER) | payer OTHER, SELFPAY ==
[2020-06-26] VITALS (8 sets, daily range): BP systolic 114–120; BP diastolic 76–80; PULSE 73–87; RESP 17–18; TEMP 36.1–36.4; O2SAT 88–98; BMI 27.2
--- NOTE | 2020-06-26 15:50 | ED.VIS.GEN ---
History of Present Illness Chief Complaint: Shortness of Breath Detail of Chief Complaint: COVID-19 Informant: Patient Onset: Days - 9 days Current Severity: Mild Maximum Severity: Mild Narrative: Patient does with increasing shortness of breath with diagnosis of COVID-19. She states she developed symptoms of congestion, shortness of breath, body aches, fever on the . She had a positive test on the . Patient states she continues to have temperatures up to 102. She does report shortness of breath, worse with any exertion. While sitting at rest her oxygen level at home has been between 80 and 90% the last 2 days. She denies any history of underlying lung disease. - Past Medical History (1) Hyperlipidemia Status: Chronic Past Medical History - Allergies and Home Meds Allergies/Adverse Reactions: Allergies No Known Allergies Allergy (Verified 06/26/20 15:36) Primary Care Physician: Asim Montenegro MD [Primary Care Provider] - Surgical History: cholecystectomy, hysterectomy Smoking Status: Never smoker Review of Systems General: Reports: Fever Eyes: Denies: Visual changes - bilaterally ENT: Denies: Bilateral ear pain Cardiovascular: Denies: Chest pain Respiratory: Reports: Dyspnea, Cough Gastrointestinal: Denies: Abdominal pain, Nausea, Vomiting, Diarrhea Genitourinary: Denies: Dysuria Musculoskeletal: Reports: Myalgias Skin: Denies: Rash, Wounds Neurological: Denies: Headache Hematologic: Denies: Easy bruising, Easy bleeding Allergy: Denies: Uticaria Physical Exam Vital Signs/Narrative: Vital Signs Temp Pulse Resp BP Pulse Ox 06/26/20 15:35 97.5 F L 87 18 114/76 98 Inital Vital Signs reviewed: Yes General: Well nourished, Well developed Head: Normocephalic Neck: Supple Cardiovascular: Regular rate, Regular rhythm Respiratory: No distress, CTA bilaterally Abdomen: Soft, Nontender Extremities: Nontender Skin: Normal color Neurological: Alert, Oriented x3 Psychological: Normal affect Diagnostic/Tx/Re-eval Chest X-Ray - ED: 1 View, Read by ED Physician, Normal, Heart, Lungs, Mediastinum - Medical Decision Making Patient was observed on registered nurse cardiac throughout her ED stay. She had no hypoxia while here. She does note oxygen levels of 88 to 90% on room air over the past 2 days at home. Blood work shows low white count, consistent with Covid. D-dimer is negative. Procalcitonin is low. Chest x-ray is clear with no evidence of infiltrate. Patient does have a positive Covid test in our system. She would prefer to go home with oxygen if possible. I will also write her for Decadron. She is given return instructions and is comfortable with this plan. ED Disposition - Plan for ED Patient: Disposition: Home or Assisted Living Diagnosis: COVID-19 Instructions: Coronavirus Disease 2019 (COVID-19): Overview, Coronavirus Disease 2019 (COVID-19): Caring for Yourself or Others Prescriptions: Dexamethasone [Decadron] 6 mg PO DAILY 5 Days #1 tab Transmission Status: Pending to [facility]/pharmacy #[id number] Referrals: Asim Montenegro MD [Primary Care Provider] - 1 Week
--- NOTE | 2020-06-26 16:00 | RAD_ITS ---
STUDY: X-RAY CHEST REASON FOR EXAM: Female, 55 years old. PT COVID POSITIVE SINCE LAST TUES. O2 AT HOME 88-90% X 2 DAYS TECHNIQUE: Single AP portable view of the chest. COMPARISON: 06/17/2016 FINDINGS: The lungs are clear and expanded. There is no demonstrated pleural abnormality. Normal size heart. Normal mediastinum and angela. Normal visualized pulmonary arteries. Normal visualized aortic arch and descending thoracic aorta. Normal visualized thoracic spine. Normal visualized ribs, clavicles, and shoulders. There is no demonstrated abnormality of the visualized soft tissue structures of the upper abdomen. RAD/Chest 1 View (Portable) IMPRESSION: Normal x-ray examination of the chest. Electronically Signed: Joel Alvarado MD at 16:12 EST Tel , Service support ,
[2020-06-26 16:05] LABS: Absolute Neutrophil Count 1.6 X10^3/uL (2.0-7.7); Basophil# 0.01 X10^3/uL; Basophil% 0.4 % (0-1); Eosinophil# 0.01 X10^3/uL; Eosinophils% 0.4 % (0-5); Hematocrit 35.7 % (37-47); Hemoglobin 12.2 g/dL (12.0-15.0); Lymphocyte % 39.3 % (19-41); Mean Corp Hgb Conc 34.2 g/dL (32-36); Mean Corpuscular Hgb 31.4 pg (27.0-32.0); Mean Platelet Vol. 10.8 fl (6.2-12.0); Monocyte# 0.12 X10^3/uL; Monocyte% 4.3 % (0-10); NRBC Flagged by Analyzer 0 % (0-5); Neutrophil # 1.55 X10^3/uL (2.7-7.7); Neutrophil % 55.2 % (47-70); Platelet Count 130 K/mm3 (150-450); RBC Distribution Width SD 43.9 fl (35.1-43.9); Red Blood Count 3.88 M/mm3 (4.2-5.4); White Blood Count 2.8 K/mm3 (4.4-11.0)
--- NOTE | 2020-06-26 16:09 | NURSING ---
ZACKARYIMER TOO SHORT, PER LAB. THEY WILL REPRINT LABEL
[2020-06-26 16:26] LABS: AST(SGOT) 32 U/L (15-37); Alanine Aminotransfer ALT/SGPT 33 U/L (13-56); Albumin, Serum 3.5 g/dL (3.2-5.0); Alkaline Phosphatase 91 U/L (45-117); Anion Gap 8 (5-15); BUN 22 mg/dL (7-18); BUN/Creat Ratio 16.4 RATIO (10-20); Calcium,Total 8.4 mg/dL (8.5-10.1); Chloride 109 mmol/L (98-107); Creatinine, Serum 1.34 mg/dL (0.55-1.02); EST Glomerular Filtration Rate 43 mL/min (>60); Est Glom Filt Rate - Afr Amer 52 mL/min (>60); Estimated Creatinine Clearance 50.09 ml/min; Globulin 3.6 g/dL (2.2-4.2); Glucose 150 mg/dL (74-106); Potassium 3.7 mmol/L (3.5-5.1); Protein, Total 7.1 g/dL (6.4-8.2); Sodium Level 141 mmol/L (136-145)
[2020-06-26 16:55] LABS: Procalcitonin 0.11 ng/mL (0.00-0.09)
[2020-06-26 16:55] LABS: Lactic Acid 1.4 mmol/L (0.4-1.9)
[2020-06-26 18:03] LABS: D-Dimer Quantitative (DVT/PE) 0.36 FEU/ug/m (0.27-0.49)
[2020-06-26] MEDS: dexAMETHasone 4 MG Tablet 6 MG PO (18:44)
--- NOTE | 2020-06-27 14:43 | CASEMGMT ---
RN CM ED PHONE CALL DC DATE: 06/26/20 DC DISPOSITION: Home with Home oxygen DC DIAGNOSIS: SARS COVID 2 Intro role of CM to patient via phone. Patient states she is feeling better and is using her oxygen @ home. Her pulse ox readings are around 94%. Pt has her medications and understands how to take. Reviewed contacting her PCP if any symptoms worsen. Currently no other symptoms but shortness of breath with activity. No other concerns. Pt is agreeable to have CM return call tomorrow for update.
--- NOTE | 2020-06-28 15:21 | NURSING ---
RNCM Covid F/u Call: Called patient cell phone, patient answered and introduced self and role. Patient states that she is feeling better today. States O2 sat 91% in morning and uses oxygen in the morning with O2 sat going up to 97%. States is fine without oxygen the rest of the day. No other concerns and is agreeable to have RNCM call tomorrow to f/u. MARCELLO Conn
--- NOTE | 2020-06-29 16:29 | CASEMGMT ---
RNRADHA Covid F/u Call: Called placed to pt. Patient states that she is feeling better today. She states she is just feeling a little fatigue today, but that is improving also. She states her breathing is better and has not needed to use the oxygen today. Pulse ox has been maintaining mostly 96% on RA. She states that she has checked it with ambulation and the lowest that has been is 92-93%. She denies needs or concerns and aware RNCM will f/u again tomorrow. Leah WEBSTERN RN CM
== END 2020-06-26 18:59 | disposition home or self-care (01) ==
PROVIDERS: Emergency Provider Emergency Medicine; PCP Family Medicine
DX: U07.1 COVID-19 (principal); E78.5 Hyperlipidemia, unspecified; Z79.899 Other long term (current) drug therapy
CPT/HCPCS: 71045; 80053; 83605; 84145; 85025; 85379; 87040; 99285; A4216

== ENCOUNTER 2020-08-24 14:12 | Outpatient (RCR) | payer OTHER, SELFPAY ==
[2020-06-26 15:35] VITALS: BMI 27.2
[2020-09-14] MEDS: COVID-19 VACC, MRNA(PFIZER)/PF 30 MCG/0.3 ML SYRINGE IM (10:31)
== END 2020-11-14 23:59 ==
LOC: IMMUN 14:12
PROVIDERS: PCP Family Medicine; Visit Provider Family Medicine
DX: Z23 Encounter for immunization (principal)
CPT/HCPCS: 0002A; 91300

== ENCOUNTER 2020-08-24 14:37 | Outpatient (RCR) | payer OTHER, SELFPAY ==
[2020-08-25] MEDS: COVID-19 VACC, MRNA(PFIZER)/PF 30 MCG/0.3 ML SYRINGE IM (16:31)
== END 2020-08-24 23:59 ==
LOC: IMMUN 14:37
PROVIDERS: PCP Family Medicine; Visit Provider Family Medicine
DX: Z23 Encounter for immunization (principal)
CPT/HCPCS: 0001A

== ENCOUNTER → 2020-11-29 06:58 | Outpatient (CLI) | payer OTHER, SELFPAY ==
[2020-06-26 15:35] VITALS: BMI 27.2
--- NOTE | 2020-11-29 07:02 | BI_ITS ---
MAMMOGRAPHY - BILATERAL SCREENING 3-D TOMOSYNTHESIS REASON FOR EXAM: Female, 55 years old. SCREENING - PERTINENT HISTORY: No significant family history. TECHNIQUE: 2-D mammograms and 3-D Tomosynthesis of the breast (s) were performed. CAD was performed. COMPARISON: 11/18/2019. FINDINGS: The breast composition is scattered fibroglandular tissue. The previously described small nodule upper aspect of the left breast at 12 o''clock was resected as no more metallic clip is seen in the area. Otherwise no evidence of splenic lesion, microcalcifications, skin thickening or nipple retraction there are benign looking lymph nodes in the axillary areas. BI/SCRN MAMM (CAD)W/FRANCIA BILAT IMPRESSION: No mammographic signs of malignancy. Routine yearly mammograms recommended. Resection of a metallic clip and small density at 12 o''clock on the left since the previous study 11/18/2019 ASSESSMENT CATEGORY: BIRADS Category 1: Negative. A letter regarding these results will be sent to the patient by the facility within 30 days. FOLLOW UP RECOMMENDATION: Yearly follow up mammogram recommended. (A) Approximately 10% of breast cancers are not detected by mammography. A normal mammogram should not delay biopsy of a clinically suspicious abnormality. Electronically Signed: Harry Rodrigues, at 13:02 EDT Tel , Service support ,
== END ==
PROVIDERS: PCP Family Medicine; Referring Provider Obstetrics & Gynecology; Visit Provider Obstetrics & Gynecology
DX: Z12.31 Encounter for screening mammogram for malignant neoplasm of breast (principal)
CPT/HCPCS: 77063; 77067

== ENCOUNTER 2021-06-15 09:04 | Outpatient (CLI) | payer OTHER, SELFPAY ==
[2021-06-15 09:32] LABS: Absolute Lymphocyte Count 2.05 X10^3/uL (0.83-4.51); Absolute Neutrophil Count 3.1 X10^3/uL (2.0-7.7); Basophil# 0.03 X10^3/uL; Basophil% 0.5 % (0-1); Eosinophil# 0.18 X10^3/uL; Eosinophils% 3.1 % (0-5); Hematocrit 42.2 % (37-47); Hemoglobin 14.1 g/dL (12.0-15.0); Lymphocyte # 2.05 X10^3/ul (0.83-4.51); Lymphocyte % 35.5 % (19-41); Mean Corp Hgb Conc 33.4 g/dL (32-36); Mean Corpuscular Hgb 31.1 pg (27.0-32.0); Mean Corpuscular Volume 93.2 fL (81-99); Mean Platelet Vol. 10.6 fl (6.2-12.0); Monocyte# 0.39 X10^3/uL; Monocyte% 6.7 % (0-10); NRBC Flagged by Analyzer 0 % (0-5); Neutrophil # 3.12 X10^3/uL (2.7-7.7); Platelet Count 248 K/mm3 (150-450); RBC Distribution Width SD 44.4 fl (35.1-43.9); Red Blood Count 4.53 M/mm3 (4.2-5.4); White Blood Count 5.8 K/mm3 (4.4-11.0)
[2021-06-15 09:49] LABS: Hemoglobin A1c 5.7 % (3.8-5.6)
[2021-06-15 10:06] LABS: ALB/GLOB Ratio 1.1 RATIO (0.9-2.4); AST(SGOT) 17 U/L (15-37); Alanine Aminotransfer ALT/SGPT 23 U/L (13-56); Alkaline Phosphatase 99 U/L (45-117); Anion Gap 6 (5-15); BUN 19 mg/dL (7-18); BUN/Creat Ratio 14.8 RATIO (10-20); Calcium,Total 9.2 mg/dL (8.5-10.1); Chloride 110 mmol/L (98-107); Cholesterol 206 mg/dL (200); Creatinine, Serum 1.28 mg/dL (0.55-1.02); EST Glomerular Filtration Rate 46 mL/min (>60); Est Glom Filt Rate - Afr Amer 55 mL/min (>60); Globulin 3.8 g/dL (2.2-4.2); Glucose 120 mg/dL (74-106); High Density Lipoprotein 77 mg/dL; Potassium 4.2 mmol/L (3.5-5.1); Protein, Total 7.8 g/dL (6.4-8.2); Sodium Level 143 mmol/L (136-145); Triglycerides 91 mg/dL; Very Low Density Lipoprotein 18 mg/dL (5-40)
== END 2021-06-15 23:59 | disposition short-term general hospital (02) ==
PROVIDERS: PCP Family Medicine; Visit Provider Family Medicine
DX: Z00.00 Encounter for general adult medical examination without abnormal findings (principal); E78.00 Pure hypercholesterolemia, unspecified; K21.9 Gastro-esophageal reflux disease without esophagitis; R73.03 Prediabetes
CPT/HCPCS: 36415; 80053; 80061; 83036; 85025

== ENCOUNTER 2024-03-26 06:56 | Day surgery (SDC) | payer OTHER, SELFPAY ==
[2024-03-25 07:25] VITALS: BMI 31.8
--- NOTE | 2024-03-26 08:59 | CL.D_ITS ---
Patient Name: ODALYS COBURN Study Date: 03/26/2024 Performing: Tad Villafana MD Ht: 67 inches 170.18 cm : 1965 Wt: 203 lbs 92.08 kg Age: 58 Gender: female BSA: 2.03 PROCEDURE(S) PERFORMED DC01-(49071)LHC/COR/LV CLINICAL PROFILE AND INDICATIONS Indications: Suspected CAD Heart Failure: None Stress/Imaging Stress/Image Study Performed: No CAD Presentations: Symptom unlikely to be ischemic. CONCLUSIONS Non obstructive coronary arteries Normal LV size, wall motion,and systolic function RECOMMENDATIONS Medical therapy DESCRIPTION OF PROCEDURE The patient arrived to the procedure lab. The risks and benefits of the procedure as well as a full description of our services here and current unavailability of surgical backup were fully explained to the patient and/or their significant other prior to the catheterization. The Timeout was completed, verifying the correct patient and procedure. The patient's procedural site was prepped and draped in the usual fashion. Local anesthetic was given subcutaneously to right radial region with Lidocaine 2%. Using a modified Seldinger technique, arterial access was obtained via the right radial artery, a 6Fr sheath was inserted. Right Coronary Artery selective angiography was then performed in multiple views using a 5 Fr. 4.0 E[place] catheter. Left Coronary Artery selective angiography was performed in multiple views using a 5 Fr. JL3.5 catheter. Left Ventriculography was performed in GREEN projection using a 5 Fr. Pigtail catheter. LV to AO pullback pressures were then recorded.The arterial sheath was pulled and a TR Band was applied for hemostasis 12 ml of air CORONARY ANGIOGRAPHY DOMINANCE: Right Dominant LEFT HEART ASSESSMENT Left Ventricular Ejection Fraction: by LV Gram 60 % Normal LV wall motion Normal Left Ventricular systolic function Normal Left Ventricular systolic function LEFT MAIN: Angiographically normal LEFT ANTERIOR DESCENDING ARTERY: Angiographically normal CIRCUMFLEX ARTERY: Angiographically normal RIGHT CORONARY ARTERY: Angiographically normal COMPLICATIONS No Complications PROCEDURE MEDICATIONS Versed 1 mg IV Fentanyl 50 mcg IV Versed 1 mg IV Versed 1 mg IV Oxygen: 2 L/min via nasal cannula Heparin given IA 03/26/2024 08:30:32 Verapamil 2.5mg, Ntg 100mcgs, 3000 units of Heparin given IA 03/26/2024 08:30:32 SUMMARY OF HEMODYNAMIC DATA Time AIR REST ECG 07:17:06 AO 134/71 (97) SA 08:39:09 AO 127/68 (94) 08:43:05 LV 134/3, 10 08:49:14 LV 142/4, 14 08:49:22 LV 140/4, 15 08:50:02 Signed By Tad Villafana MD On 03/26/2024 08:58:56 Tad Villafana MD
== END 2024-03-26 10:40 | disposition home or self-care (01) ==
PROVIDERS: PCP Registered Nurse; Referring Provider Internal Medicine Cardiovascular Disease; Visit Provider Internal Medicine Cardiovascular Disease
DX: R07.89 Other chest pain (principal); I10 Essential (primary) hypertension; I44.7 Left bundle-branch block, unspecified; E66.9 Obesity, unspecified; E03.9 Hypothyroidism, unspecified; E78.5 Hyperlipidemia, unspecified; F41.9 Anxiety disorder, unspecified; G25.81 Restless legs syndrome; G43.909 Migraine, unspecified, not intractable, without status migrainosus; Z68.31 Body mass index [BMI] 31.0-31.9, adult; Z90.49 Acquired absence of other specified parts of digestive tract; Z79.82 Long term (current) use of aspirin; Z79.899 Other long term (current) drug therapy; Z79.890 Hormone replacement therapy
CPT/HCPCS: 93458; 99152; 99153; Q9967; C1769; C1894